=== PATIENT | male | born 1990 | race Caucasian/White ===

== ENCOUNTER 2018-01-17 13:02 | Inpatient (IN) | payer OTHER ==
[~2018-01-17] VITALS: Ht 167.6 cm; Wt 94.5 kg
[2018-01-17 13:15] VITALS: Ht 167.6 cm; Wt 94.5 kg
[2018-01-17] MEDS ORDERED: ORPHENADRINE C100 MG PO (14:30)
[2018-01-17] MEDS ORDERED: NABUMETONE750 MG PO (14:30)
[2018-01-17 15:54] LABS: CHOLESTEROL/HDL RATIO 2.9; MAGNESIUM 1.9 mg/dL (1.8-2.4)
[2018-01-17 16:00] LABS: T3 TOTAL 1.36 ng/mL
[2018-01-17 16:01] LABS: FREE T4 1.05 ng/dL (0.76-1.46); T4(THYROXINE) 8.7 ug/dL (4.7-13.3)
[2018-01-17 17:14] VITALS: BP 124/93
[2018-01-17 20:57] LABS: BASOPHIL % 0.1 % (0-2); PLATELET COUNT 224 x10^3mcL (130-400); RED CELL DISTRIBUTION WIDTH 13.2 % (11.5-14.5)
[2018-01-17 20:58] LABS: ALKALINE PHOSPHATASE 105 U/L (46-116); ALT/SGPT 27 U/L (16-63); AST/SGOT 22 U/L (15-37); BILIRUBIN TOTAL 1.7 mg/dL (0.20-1.00); CALCIUM 9.3 mg/dL (8.5-10.1); CARBON DIOXIDE 25.4 mmol/L (21-32); CHLORIDE SERUM 102 mmol/L (98-107); GFR1 > 60 mL/min; GLUCOSE SERUM 100 mg/dL (74-106); POTASSIUM SERUM 4.2 mmol/L (3.5-5.1); SODIUM SERUM 138 mmol/L (136-145); TOTAL PROTEIN, SERUM 7.9 g/dL (6.4-8.2)
[2018-01-17 21:10] VITALS: BP 117/70
[2018-01-18 04:53] VITALS: BP 111/68
[2018-01-18 05:18] LABS: microscopic required? NO
[2018-01-18 05:29] LABS: urine erythrocyte NEGATIVE (NEGATIVE)
[2018-01-18 06:11] LABS: BASOPHIL % 0.2 % (0-2); PLATELET COUNT 213 x10^3mcL (130-400); RED CELL DISTRIBUTION WIDTH 13.1 % (11.5-14.5)
[2018-01-18 06:24] LABS: CALCIUM 8.7 mg/dL (8.5-10.1); CARBON DIOXIDE 27.6 mmol/L (21-32); CHLORIDE SERUM 104 mmol/L (98-107); CREATININE SERUM 0.8 mg/dL (0.7-1.3); GFR1 > 60 mL/min; GLUCOSE SERUM 102 mg/dL (74-106); PHOSPHOROUS 3.5 mg/dL (2.5-4.9); POTASSIUM SERUM 3.8 mmol/L (3.5-5.1); SODIUM SERUM 140 mmol/L (136-145)
[2018-01-18 06:42] VITALS: BP 113/64
[2018-01-18 16:46] VITALS: BP 130/75
[2018-01-18 20:53] VITALS: BP 127/72
[2018-01-19 05:47] VITALS: BP 144/81
[2018-01-19 06:12] LABS: CALCIUM 8.9 mg/dL (8.5-10.1); CARBON DIOXIDE 26.4 mmol/L (21-32); CHLORIDE SERUM 103 mmol/L (98-107); CREATININE SERUM 0.8 mg/dL (0.7-1.3); GFR1 > 60 mL/min; GLUCOSE SERUM 108 mg/dL (74-106); POTASSIUM SERUM 3.5 mmol/L (3.5-5.1); SODIUM SERUM 139 mmol/L (136-145)
[2018-01-19 06:32] LABS: BASOPHIL % 0.3 % (0-2); PLATELET COUNT 223 x10^3mcL (130-400); RED CELL DISTRIBUTION WIDTH 13.2 % (11.5-14.5)
[2018-01-19 09:23] VITALS: BP 127/74
[2018-01-19] MEDS ORDERED: MOT800 PO (10:38)
[2018-01-19] MEDS ORDERED: NOR10T PO (10:40)
[2018-01-19 16:47] VITALS: BP 127/74
== END 2018-01-19 18:34 | disposition home or self-care (01) | DRG 494 ==
LOC: ED 13:02 → DU 14:13 → MU 14:13 → DU 14:13 → MU 01-18 15:14
PROVIDERS: Family Medicine; Podiatrist Foot & Ankle Surgery
PROC: 0QSJ04Z Reposition Right Fibula with Internal Fixation Device, Open Approach (ICD-10-PCS; 2018-01-18)
PROC: 0SSF04Z Reposition Right Ankle Joint with Internal Fixation Device, Open Approach (ICD-10-PCS; 2018-01-18)
PROC: 0QSG04Z Reposition Right Tibia with Internal Fixation Device, Open Approach (ICD-10-PCS; principal; 2018-01-18 07:30)
DX: S82.851A Displaced trimalleolar fracture of right lower leg, initial encounter for closed fracture (principal); W01.0XXA Fall on same level from slipping, tripping and stumbling without subsequent striking against object, initial encounter; Y93.89 Activity, other specified; Y92.89 Other specified places as the place of occurrence of the external cause; Y99.8 Other external cause status; F17.210 Nicotine dependence, cigarettes, uncomplicated; E80.6 Other disorders of bilirubin metabolism; S82.401A Unspecified fracture of shaft of right fibula, initial encounter for closed fracture
CPT/HCPCS: 83880; 84439; 94150; 97110-GP; 97116-GP; 97530-GP; 97535-GP; 99406; C1713; J0330; J0690; J1885; J2250; J2270; J2405; J2704; J2710; J3010; J3490; J7030; J7120; Q0092

== ENCOUNTER 2018-01-25 12:54 | Emergency (ER) | payer OTHER ==
[~2018-01-25] VITALS: Ht 167.6 cm; Wt 93.0 kg
[~2018-01-25 12:54] MED LIST: MOT800 PO; NABUMETONE750 MG PO; NOR10T PO; ORPHENADRINE C100 MG PO
[2018-01-25 13:06] VITALS: Ht 167.6 cm; Wt 93.0 kg
[2018-01-25 15:12] VITALS: BP 135/77
== END 2018-01-25 15:12 | disposition home or self-care (01) ==
LOC: ED 12:54
DX: M79.604 Pain in right leg (principal); Z87.81 Personal history of (healed) traumatic fracture
CPT/HCPCS: Q0092